=== PATIENT | female | born 1945 | race Caucasian/White ===

== ENCOUNTER 2021-02-21 08:38 | Emergency (ER) | payer OTHER ==
[~2021-02-21] VITALS: Ht 162.6 cm; Wt 54.4 kg
[2021-02-21] MEDS ORDERED: DILTIAZEM HCL 25 MG IV IV ONE ×2 (09:15→10:00)
[2021-02-21] MEDS ORDERED: BENZONATATE 100 MG CAPSULE PO ONE (09:15)
--- NOTE | 2021-02-21 09:20 | NUR ---
Pt is requesting [place] 10mg po, states she gets one at this time at her SNF, notified. Medicated with Cardizem IV as ordered. BP 170/75, HR 127, RR 20, Pulse ox 97% (O2 4L via NC).
[2021-02-21] MEDS ORDERED: BENZONATATE 100 MG CAPSULE ONE (09:23)
[2021-02-21] MEDS ORDERED: DILTIAZEM HCL 25 MG IV ONE (09:24)
[2021-02-21] MEDS ORDERED: IV NORMAL SALINE 250 ML IV ONE (09:25)
[2021-02-21] MEDS ORDERED: SWABABLE VALVE TRANSFER SET EA MC ONE (09:25)
[2021-02-21] MEDS ORDERED: IOHEXOL 350 100 ML INFUS..BTL ONE (09:25)
[2021-02-21 09:33] LABS: HEMATOCRIT 33.2 % (31.2-41.9); MEAN CORPUSCULAR HEMOGLOBIN 27.6 uug (24.7-32.8); MEAN CORPUSCULAR VOLUME 83.9 fL (75.5-95.3); PLATELET COUNT (AUTO) 358 K/uL (179-408)
[2021-02-21 09:40] LABS: CREATININE 0.7 mg/dL (0.6-1.3); POTASSIUM 3.9 mmol/L (3.5-5.1)
[2021-02-21] MEDS ORDERED: CEFTRIAXONE 1 G in IV DEXTROSE 5% 50 ML IV ONE (09:45)
[2021-02-21] MEDS ORDERED: NITROGLYCERIN 0.4 MG/TAB BOTTLE SL ONE ×2 (09:45→09:55)
[2021-02-21] MEDS ORDERED: HYDROCODONE/APAP 10-325 MG TABLET PO ONE ×2 (09:45→18:15)
[2021-02-21] MEDS ORDERED: CLOPIDOGREL 75 MG TABLET PO ONE (09:45)
[2021-02-21] MEDS ORDERED: AZITHROMYCIN IV 500 MG in IV DEXTROSE 5% 250 ML IV ONE (09:45)
[2021-02-21 09:53] LABS: BILIRUBIN,TOTAL 0.5 mg/dL (0.2-1.0); TOTAL PROTEIN, SERUM 7.5 g/dL (6.4-8.2)
[2021-02-21] MEDS ORDERED: HYDROCODONE/APAP 10-325 MG TABLET ONE ×2 (09:55→18:24)
[2021-02-21] MEDS ORDERED: AZITHROMYCIN 500MG/ D5W 250ML IVPB **ER PYXIS ONLY IV ONE (09:56)
[2021-02-21] MEDS ORDERED: CEFTRIAXONE /D5W 50ML IVPB **ER PYXIS IV ONE (09:56)
[2021-02-21] MEDS ORDERED: CLOPIDOGREL 75 MG TABLET ONE (09:56)
--- NOTE | 2021-02-21 10:20 | NUR ---
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 Pt refused NTG, states " I be good after the [place] ". Pt signed consent for CTA. Pt states she was hx with rib fx (rt) and broken rt ankle post fall, had surg on her rt ankle and was placed at the current facility for rehab. Pt arrived with cam walker boot to [facility].
--- NOTE | 2021-02-21 11:04 | NUR ---
pt unable to recall list of meds and dosages at this time.
--- NOTE | 2021-02-21 11:15 | NUR ---
Pt resting with NAD noted at this time. Pt states her pain is improved.
[2021-02-21] MEDS ORDERED: VIT1CAPS9 PO (11:21)
[2021-02-21] MEDS ORDERED: DABI150C PO (11:21)
[2021-02-21] MEDS ORDERED: LACT10SO3 PO (11:21)
[2021-02-21] MEDS ORDERED: EZET10TA15 PO (11:21)
[2021-02-21] MEDS ORDERED: CALC100O TP (11:21)
[2021-02-21] MEDS ORDERED: BIMA2.5D5 EACHEYE (11:21)
[2021-02-21] MEDS ORDERED: DILT-3 PO (11:21)
[2021-02-21] MEDS ORDERED: FERR325T28 PO (11:21)
[2021-02-21] MEDS ORDERED: POLY119P3 PO (11:21)
[2021-02-21] MEDS ORDERED: BISO5TAB21 PO (11:21)
[2021-02-21] MEDS ORDERED: DOCU-141 PO (11:21)
[2021-02-21] MEDS ORDERED: TROL100C TP (11:21)
[2021-02-21] MEDS ORDERED: GABA-532 PO (11:21)
[2021-02-21] MEDS ORDERED: FAMO-132 PO (11:21)
[2021-02-21] MEDS ORDERED: SENN-22 PO (11:21)
[2021-02-21] MEDS ORDERED: FURO20TA4 PO (11:21)
[2021-02-21] MEDS ORDERED: ATOR40TA PO (11:21)
[2021-02-21] MEDS ORDERED: TERI2.4P SUBCUT (11:21)
[2021-02-21] MEDS ORDERED: ASCO500T10 PO (11:21)
[2021-02-21] MEDS ORDERED: DIGO125T5 PO (11:21)
[2021-02-21] MEDS ORDERED: BACL10TA PO (11:21)
[2021-02-21] MEDS ORDERED: HYDR-3980 PO (11:21)
[2021-02-21] MEDS ORDERED: TRET20CR TP (11:21)
[2021-02-21] MEDS ORDERED: FUROSEMIDE 20 MG/2 ML VIAL IV ONE (12:00)
[2021-02-21] MEDS ORDERED: FUROSEMIDE 20 MG/2 ML VIAL ONE (12:53)
--- NOTE | 2021-02-21 13:34 | NUR ---
Dr. Perry spoke with Dr. Godfrey from [facility].
[2021-02-21] MEDS ORDERED: DILTIAZEM HCL 30 MG TABLET PO ONE (13:45)
[2021-02-21] MEDS ORDERED: DILTIAZEM HCL 30 MG TABLET ONE (13:58)
[2021-02-21 14:01] VITALS: BP 131/75
[2021-02-21] MEDS ORDERED: MORPHINE SULFATE 2 MG/1 ML DISP.SYRIN ONE (14:10)
[2021-02-21] MEDS ORDERED: ONDANSETRON 4 MG/2 ML VIAL ONE (14:10)
--- NOTE | 2021-02-21 14:10 | NUR ---
Pt ambulated to restroom with minimal assistance. Pt was medicated with Morphine for pain secondary to ambulating to restroom. Plan of care discussed with pt, pt signed consent for transfer ([place]). Pt eating lunch, NAD noted at this time.
[2021-02-21] MEDS ORDERED: MORPHINE SULFATE 2 MG/1 ML DISP.SYRIN IV ONE (14:15)
[2021-02-21] MEDS ORDERED: ONDANSETRON 4 MG/2 ML VIAL IV ONE (14:15)
--- NOTE | 2021-02-21 17:10 | NUR ---
Received telephone call from Tika from [facility] with transfer info as follows: Facility: [facility] Rm: [id number] Call report to: [phone] Accepting MD: Dr.Dini SAUCEDA for pickup: [id number] ([facility] ambulance).
--- NOTE | 2021-02-21 18:40 | NUR ---
Pt transfered to [facility] (rm [id number]) via [facility]. NAD noted upon transfer. SBAR report given to Christina.
== END 2021-02-21 19:00 | disposition short-term general hospital (02) ==
LOC: ER 08:38
DX: I48.91 Unspecified atrial fibrillation (principal); J18.9 Pneumonia, unspecified organism; Z20.822 Contact with and (suspected) exposure to COVID-19; D86.2 Sarcoidosis of lung with sarcoidosis of lymph nodes; I50.43 Acute on chronic combined systolic (congestive) and diastolic (congestive) heart failure; K21.9 Gastro-esophageal reflux disease without esophagitis; Z79.899 Other long term (current) drug therapy; S82.891D Other fracture of right lower leg, subsequent encounter for closed fracture with routine healing; X58.XXXD Exposure to other specified factors, subsequent encounter
CPT/HCPCS: 36415; 71045; 71275; 80053; 83605; 83880; 84443; 84484; 85025; 85730; 87040 ×2; 87426; 93005 ×2; 96365; 96367; 96375; 96376; 99285; J0456; J0696; J1940; J2270; J2405; J3490; Q9967; 70030-TC; A4663; J7050